=== PATIENT | male | born 1995 | race Asian ===

== ENCOUNTER 2020-07-04 02:35 | Emergency (ER) | payer BC ==
[2020-07-04] MEDS ORDERED: Lidocaine 1% (PF) 30 ML VIAL ONE (03:21)
[2020-07-04] MEDS ORDERED: Bacitracin 1 PK ONE (04:22)
[2020-07-04] MEDS ORDERED: Ondansetron ODT 8 MG TAB ONE (04:22)
[2020-07-04] MEDS ORDERED: Morphine 10 MG/ML VIAL ONE (04:22)
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
== END 2020-07-04 04:31 | disposition home or self-care (01) ==
LOC: ERS 02:35
DX: S02.609A Fracture of mandible, unspecified, initial encounter for closed fracture (principal); S02.5XXA Fracture of tooth (traumatic), initial encounter for closed fracture; S01.81XA Laceration without foreign body of other part of head, initial encounter; F17.200 Nicotine dependence, unspecified, uncomplicated; Z79.899 Other long term (current) drug therapy; V19.9XXA Pedal cyclist (driver) (passenger) injured in unspecified traffic accident, initial encounter
CPT/HCPCS: 12013; 70486; 96372; J2001; J2270; Q0162

== ENCOUNTER 2022-12-27 12:39 | Day surgery (SDC) | payer BC ==
[2022-12-24 08:36] VITALS: BMI 25.2
[2022-12-27 14:42] VITALS: BP 131/77
== END 2022-12-27 14:15 | disposition home or self-care (01) ==
LOC: ULT 12:39
PROVIDERS: ATTEND Physician Assistant
PROC: 0G9H3ZX Drainage of Right Thyroid Gland Lobe, Percutaneous Approach, Diagnostic (ICD-10-PCS; principal; 2022-12-27)
PROC: 0G9G3ZX Drainage of Left Thyroid Gland Lobe, Percutaneous Approach, Diagnostic (ICD-10-PCS; principal; 2022-12-27)
DX: E04.2 Nontoxic multinodular goiter (principal); Z79.899 Other long term (current) drug therapy
CPT/HCPCS: 10005; 10006; 88173; 88305